=== PATIENT | female | born 1965 | race Caucasian/White ===

== ENCOUNTER 2016-12-25 19:03 | Emergency (ER) | payer SELFPAY ==
[2016-12-25 19:47] VITALS: BP 123/78
[2016-12-25] MEDS ORDERED: IPRATROPIUM/ALBUTEROL 3 ML VIAL NEB ONE (20:36)
[2016-12-25] MEDS ORDERED: ALBUTEROL SULFATE 2.5 MG/3 ML VIAL NEB ONE (22:07)
--- NOTE | 2016-12-25 22:34 | RAD ---
EXAM DESCRIPTION: Chest,2 Views CLINICAL HISTORY: 51 years Female cough/sob COMPARISON: None. FINDINGS: The cardiomediastinal silhouette appears unremarkable. Mild atelectasis or infiltrate left lung base. No pleural effusions. No pneumothorax. IMPRESSION: Mild atelectasis or infiltrate at the left lung base. Electronically signed by: Camilo Vazquez MD 12/25/2016 10:15 PM SHEEP SHEARER
--- NOTE | 2016-12-25 22:37 | ED.PDOC ---
History of Present Illness - General Chief Complaint: Respiratory Problem Stated Complaint: cough and conjestion Time Seen by Provider: 12/25/16 19:34 Source: patient, RN notes reviewed, Vital Signs reviewed Exam Limitations: no limitations - History of Present Illness Initial Comments: Patient is a 51 y/o female who has had a cough for the past week. The cough is worsening and she now has chest pain when she coughs. It is productive. She reports fever/chills. She is a smoker. Timing/Duration: 1 week Severity: moderate Improving Factors: nothing Worsening Factors: nothing Associated Symptoms: chest pain, cough, fever/chills, shortness of breath Allergies/Adverse Reactions: Allergies Aspirin Allergy (Verified 12/25/16 19:33) Home Medications: Ambulatory Orders Albuterol Inhaler [Ventolin Hfa Inhaler] 2 puff INH Q4H PRN #1 inh 12/25/16 Azithromycin [Zithromax Z-Mauricio] 1 ea PO DAILY #1 pack 12/25/16 Review of Systems - Review of Systems Constitutional: States: chills, fever EENTM: States: no symptoms reported Respiratory: States: cough, short of breath Cardiology: States: chest pain - with cough Gastrointestinal/Abdominal: States: nausea Genitourinary: States: no symptoms reported Musculoskeletal: States: muscle pain Skin: States: no symptoms reported Neurological: States: no symptoms reported Endocrine: States: no symptoms reported Hematologic/Lymphatic: States: no symptoms reported All other Systems: Reviewed and Negative Past Medical History (General) - Patient Medical History Hx Seizures: No Hx Stroke: No Hx Dementia: No Hx Asthma: No Hx of COPD: No Hx Cardiac Disorders: No Hx Congestive Heart Failure: No Hx Pacemaker: No Hx Hypertension: No Hx Thyroid Disease: No Hx Diabetes: No Hx Gastroesophageal Reflux: No Hx Renal Disease: No Hx Cancer: No Hx of HIV: No Hx Hepatitis C: No Hx MRSA: No Surgical History: Hysterectomy - Vaccination History Hx Tetanus, Diphtheria Vaccination: - unknown Hx Influenza Vaccination: No Hx Pneumococcal Vaccination: No - Social History Hx Tobacco Use: Yes Hx Chewing Tobacco Use: No Hx Alcohol Use: No Hx Substance Use: No Hx Substance Use Treatment: No Hx Depression: Yes Hx Physical Abuse: No Hx Emotional Abuse: No Hx Suspected Abuse: No - Female History Patient is a Female of Child Bearing Age (10 -59 yrs old): Yes Patient : No Family Medical History - Family History Mother Family History: No Known Living Status: Still Living Physical Exam - Physical Exam General Appearance: Alert, No apparent distress Eye Exam: bilateral normal Ears, Nose, Throat: normal ENT inspection Respiratory: decreased breath sounds, crackles, rhonchi, wheezing, expiration, inspiration Cardiovascular/Chest: regular rate, rhythm, no edema, no gallop, no murmur Gastrointestinal/Abdominal: normal bowel sounds, non tender, soft, no organomegaly Extremity: normal range of motion Neurologic: alert, normal mood/affect, oriented x 3 Skin Exam: normal color, warm/dry Progress - Progress Progress: 12/25/16 22:38 Patient didn't notice much improvement with the DuoNeb, but noticed significant improvement with the albuterol NEB. - Results/Orders Results/Orders: 12/25/16 19:35 Temperature 99.2 F Pulse Rate [ 97 H Left] Respiratory 20 Rate Blood Pressure 123/78 [Left Arm] O2 Sat by Pulse 92 L Oximetry 12/25/16 20:51 SVN/Updraft Therapy .PRN Laboratory Results WBC 12.3 K/mm3 (4.8-10.8) H 12/25/16 20:30 RBC 4.78 M/mm3 (4.20-5.40) 12/25/16 20:30 Hgb 14.9 gm/dL (12.0-16.0) 12/25/16 20:30 Hct 43.9 % (36.0-47.0) 12/25/16 20:30 MCV 91.8 fl (81.0-99.0) 12/25/16 20:30 MCH 31.2 pg (27.0-31.0) H 12/25/16 20:30 MCHC 34.0 g/dL (33.0-37.0) 12/25/16 20:30 RDW 13.3 % (11.5-14.5) 12/25/16 20:30 Plt Count 304 K/mm3 (130-400) 12/25/16 20:30 MPV 8.4 fl (7.40-10.4) 12/25/16 20:30 Absolute Neuts (auto) 7.00 K/uL (1.8-6.8) H 12/25/16 20:30 Absolute Lymphs (auto) 3.80 K/uL (1.0-3.4) H 12/25/16 20:30 Absolute Monos (auto) 1.10 K/uL (0.2-0.8) H 12/25/16 20:30 Absolute Eos (auto) 0.30 K/uL (0.0-0.4) 12/25/16 20:30 Absolute Basos (auto) 0.10 K/uL (0.0-0.1) 12/25/16 20:30 Neutrophils % 56.6 % (42.0-78.0) 12/25/16 20:30 Lymphocytes % 30.6 % (20.0-50.0) 12/25/16 20:30 Monocytes % 9.0 % (2.0-9.0) 12/25/16 20:30 Eosinophils % 2.7 % (1.0-5.0) 12/25/16 20:30 Basophils % 1.1 % (0.0-2.0) 12/25/16 20:30 Sodium 139 mmol/L (135-145) 12/25/16 20:30 Potassium 4.3 mmol/L (3.6-5.0) 12/25/16 20:30 Chloride 104 mmol/L (101-111) 12/25/16 20:30 Carbon Dioxide 30 mmol/L (21-31) 12/25/16 20:30 Anion Gap 9.3 (12-18) L 12/25/16 20:30 BUN 13 mg/dL (7-18) 12/25/16 20:30 Creatinine 0.84 mg/dL (0.6-1.3) 12/25/16 20:30 BUN/Creatinine Ratio 15.5 (10-20) 12/25/16 20:30 Random Glucose 99 mg/dL (70-105) 12/25/16 20:30 Serum Osmolality 277.7 mOsm/L (275-295) 12/25/16 20:30 Calcium 9.0 mg/dL (8.4-10.2) 12/25/16 20:30 Total Bilirubin 0.5 mg/dL (0.2-1.0) 12/25/16 20:30 AST 17 IU/L (10-42) 12/25/16 20:30 ALT 13 IU/L (10-60) 12/25/16 20:30 Alkaline Phosphatase 58 IU/L (42-121) 12/25/16 20:30 Serum Total Protein 8.0 gm/dL (6.4-8.2) 12/25/16 20:30 Albumin 4.0 g/dl (3.2-5.5) 12/25/16 20:30 Globulin 4.0 gm/dL (2.3-3.5) H 12/25/16 20:30 Albumin/Globulin Ratio 1.0 (1.1-1.9) L 12/25/16 20:30 - EKG/XRAY/CT XRAY: chest - LLL infiltrate Departure - Departure Clinical Impression: Pneumonia Qualifiers: Pneumonia type: due to unspecified organism Laterality: left Lung location: lower lobe of lung Qualifier Code: (J18.9) Pneumonia, unspecified organism Time of Disposition: 22:41 Disposition: Discharge to Home or Self Care Condition: Fair Departure Forms: ED Discharge - Pt. Copy, Patient Portal Self Enrollment Instructions: DI for Pneumonia -- Adult, Pneumonia-Adult Diet: resume usual diet Prescriptions: Albuterol Inhaler [Ventolin Hfa Inhaler] 2 puff INH Q4H PRN #1 inh PRN Reason: Shortness Of Breath Azithromycin [Zithromax Z-Mauricio] 1 ea PO DAILY #1 pack Home Medications: Ambulatory Orders Albuterol Inhaler [Ventolin Hfa Inhaler] 2 puff INH Q4H PRN #1 inh 12/25/16 Azithromycin [Zithromax Z-Mauricio] 1 ea PO DAILY #1 pack 12/25/16 Additional Instructions: Follow up if symptoms persist or worsen.
[2016-12-25] MEDS ORDERED: cefTRIAXone SODIUM 1 GM VIAL IM ONE (22:39)
[2016-12-25] MEDS ORDERED: LIDOCAINE 1% 10 ML VIAL INJ ONE (22:53)
[2016-12-25 23:17] VITALS: TEMP 99.1
[2016-12-25 23:20] VITALS: O2SAT 98
--- NOTE | 2016-12-30 14:09 | RAD ---
EXAM DESCRIPTION: Chest,2 Views CLINICAL HISTORY: 51 years Female cough/sob COMPARISON: None. FINDINGS: The cardiomediastinal silhouette appears unremarkable. Mild atelectasis or infiltrate left lung base. No pleural effusions. No pneumothorax. IMPRESSION: Mild atelectasis or infiltrate at the left lung base. Electronically signed by: Camilo Vazquez MD 12/25/2016 10:15 PM CONTROL CLERK HEAD
--- NOTE | 2017-01-23 23:47 | RAD ---
EXAM DESCRIPTION: Chest,2 Views CLINICAL HISTORY: 51 years Female cough/sob COMPARISON: None. FINDINGS: The cardiomediastinal silhouette appears unremarkable. Mild atelectasis or infiltrate left lung base. No pleural effusions. No pneumothorax. IMPRESSION: Mild atelectasis or infiltrate at the left lung base. Electronically signed by: Camilo Vazquez MD 12/25/2016 10:15 PM WHEEL TRUING MACHINE TENDER
--- NOTE | 2017-01-24 01:52 | RAD ---
EXAM DESCRIPTION: Chest,2 Views CLINICAL HISTORY: 51 years Female cough/sob COMPARISON: None. FINDINGS: The cardiomediastinal silhouette appears unremarkable. Mild atelectasis or infiltrate left lung base. No pleural effusions. No pneumothorax. IMPRESSION: Mild atelectasis or infiltrate at the left lung base. Electronically signed by: Camilo Vazquez MD 12/25/2016 10:15 PM SPECIAL DEPUTY SHERIFF
--- NOTE | 2017-01-24 07:15 | RAD ---
EXAM DESCRIPTION: Chest,2 Views CLINICAL HISTORY: 51 years Female cough/sob COMPARISON: None. FINDINGS: The cardiomediastinal silhouette appears unremarkable. Mild atelectasis or infiltrate left lung base. No pleural effusions. No pneumothorax. IMPRESSION: Mild atelectasis or infiltrate at the left lung base. Electronically signed by: Camilo Vazquez MD 12/25/2016 10:15 PM CHIEF EXECUTIVE
== END 2016-12-25 23:20 | disposition home or self-care (01) ==
LOC: ER 19:03
DX: J18.9 Pneumonia, unspecified organism (principal); F17.200 Nicotine dependence, unspecified, uncomplicated; Z88.6 Allergy status to analgesic agent
CPT/HCPCS: 36415; 71020; 80053; 85025; 94640; J0696; J7611; J7620

== ENCOUNTER 2017-01-15 16:54 | Emergency (ER) | payer SELFPAY ==
[2017-01-15] MEDS ORDERED: ONDANSETRON INJ 4 MG/2 ML VIAL IV ONE (16:56)
[2017-01-15] MEDS ORDERED: NITROGLYCERIN 0.4 MG 25 EA TAB SL ONE (16:56)
--- NOTE | 2017-01-15 17:09 | ED.PDOC ---
History of Present Illness - General Chief Complaint: Chest Pain/CA Time Seen by Provider: 01/15/17 17:04 Source: patient, RN notes reviewed, Vital Signs reviewed Exam Limitations: no limitations - History of Present Illness Initial Comments: Sri.Vi 51 y/o female with history of ibs and depression stated while sitting at home she had sudden onset of chest pains "feeling of somebody kicking on her chest" which goes around her back no diaphoresi, no nausea or vomiting but aggravated with taking deep breaths Timing/Duration: 1/2 hour Location: central Activities at Onset: rest Prior Chest Pain/Cardiac Workup: no prior chest pain Improving Factors: nothing Worsening Factors: nothing, other - deep breath Nitro Today/Relief: no nitro taken today Aspirin Treatment Today: no aspirin today Associated Symptoms: other - his tory of pneumonia 2 weeks ago with pleuritic chest pain Allergies/Adverse Reactions: Allergies Aspirin Allergy (Verified 01/15/17 17:18) Home Medications: Ambulatory Orders Doxycycline Hyclate 100 mg PO BID #14 tab 01/15/17 Review of Systems - Review of Systems Constitutional: States: no symptoms reported EENTM: States: no symptoms reported Respiratory: States: see HPI Cardiology: States: see HPI Gastrointestinal/Abdominal: States: no symptoms reported Genitourinary: States: no symptoms reported, other - history of ibs Musculoskeletal: States: no symptoms reported Skin: States: no symptoms reported Neurological: States: no symptoms reported Endocrine: States: no symptoms reported Hematologic/Lymphatic: States: no symptoms reported Past Medical History (General) - Patient Medical History Hx Seizures: No Hx Stroke: No Hx Dementia: No Hx Asthma: No Hx of COPD: No Hx Cardiac Disorders: No Hx Congestive Heart Failure: No Hx Pacemaker: No Hx Hypertension: No Hx Thyroid Disease: No Hx Diabetes: No Hx Gastroesophageal Reflux: No Hx Renal Disease: No Hx Cancer: No Hx of HIV: No Hx Hepatitis C: No Hx MRSA: No Hx Other PMH: Yes - ibs ,depression Surgical History: other - hysterectomy - Vaccination History Hx Tetanus, Diphtheria Vaccination: - unknown Hx Influenza Vaccination: No Hx Pneumococcal Vaccination: No - Social History Hx Tobacco Use: Yes Hx Chewing Tobacco Use: No Hx Alcohol Use: No Hx Substance Use: No Hx Substance Use Treatment: No Hx Depression: Yes Hx Physical Abuse: No Hx Emotional Abuse: No Hx Suspected Abuse: No - Activities of Daily Living Patient Lives Alone: No - family - Female History Patient : No Family Medical History - Family History Mother Family History: No Known Living Status: Still Living Hx Cardiac Disease: Yes - mom-chf ,cad Physical Exam - Physical Exam General Appearance: Alert, Anxious, No apparent distress Eyes, Ears, Nose, Throat Exam: PERRL/EOMI, normal ENT inspection, TMs normal, pharynx normal Neck: non-tender, full range of motion, supple, normal inspection Respiratory: chest non-tender, lungs clear, normal breath sounds, no respiratory distress, no accessory muscle use Cardiovascular/Chest: normal peripheral pulses, regular rate, rhythm, no edema, no gallop, no JVD, no murmur Peripheral Pulses: radial,right: 2+, radial,left: 2+ Gastrointestinal/Abdominal: normal bowel sounds, non tender, soft, no organomegaly, no pulsatile mass Rectal Exam: normal exam Extremity: normal range of motion, non-tender, normal inspection Neurologic: no motor/sensory deficits, alert, normal mood/affect, oriented x 3 Skin Exam: normal color, warm/dry Lymphatic: no adenopathy Progress - Results/Orders Results/Orders: 01/15/17 16:56 Telemetry .ONCE EKG Stat Pulse Ox Stat 01/15/17 16:57 Pulse Oximetry Assessment DAILY 01/15/17 20:23 EKG Assessment ONCE 01/15/17 20:30 EKG STAT Laboratory Results WBC 11.1 K/mm3 (4.8-10.8) H 01/15/17 17:12 RBC 4.90 M/mm3 (4.20-5.40) 01/15/17 17:12 Hgb 14.9 gm/dL (12.0-16.0) 01/15/17 17:12 Hct 44.7 % (36.0-47.0) 01/15/17 17:12 MCV 91.3 fl (81.0-99.0) 01/15/17 17:12 MCH 30.4 pg (27.0-31.0) 01/15/17 17:12 MCHC 33.3 g/dL (33.0-37.0) 01/15/17 17:12 RDW 13.1 % (11.5-14.5) 01/15/17 17:12 Plt Count 299 K/mm3 (130-400) 01/15/17 17:12 MPV 8.6 fl (7.40-10.4) 01/15/17 17:12 Absolute Neuts (auto) 6.40 K/uL (1.8-6.8) 01/15/17 17:12 Absolute Lymphs (auto) 3.50 K/uL (1.0-3.4) H 01/15/17 17:12 Absolute Monos (auto) 0.90 K/uL (0.2-0.8) H 01/15/17 17:12 Absolute Eos (auto) 0.30 K/uL (0.0-0.4) 01/15/17 17:12 Absolute Basos (auto) 0.10 K/uL (0.0-0.1) 01/15/17 17:12 Neutrophils % 57.8 % (42.0-78.0) 01/15/17 17:12 Lymphocytes % 31.0 % (20.0-50.0) 01/15/17 17:12 Monocytes % 7.9 % (2.0-9.0) 01/15/17 17:12 Eosinophils % 2.3 % (1.0-5.0) 01/15/17 17:12 Basophils % 1.0 % (0.0-2.0) 01/15/17 17:12 PT 11.1 SECONDS (9.4-12.5) 01/15/17 17:12 INR 0.980 01/15/17 17:12 PTT (SP) 31.8 SECONDS (25.1-36.5) 01/15/17 17:12 D-Dimer, Quantitative < 230 ng/mL (0-230) 01/15/17 17:00 Sodium 137 mmol/L (135-145) 01/15/17 17:12 Potassium 3.6 mmol/L (3.6-5.0) 01/15/17 17:12 Chloride 103 mmol/L (101-111) 01/15/17 17:12 Carbon Dioxide 27 mmol/L (21-31) 01/15/17 17:12 Anion Gap 10.6 (12-18) L 01/15/17 17:12 BUN 12 mg/dL (7-18) 01/15/17 17:12 Creatinine 0.94 mg/dL (0.6-1.3) 01/15/17 17:12 BUN/Creatinine Ratio 12.8 (10-20) 01/15/17 17:12 Random Glucose 97 mg/dL (70-105) 01/15/17 17:12 Serum Osmolality 273.5 mOsm/L (275-295) L 01/15/17 17:12 Calcium 8.9 mg/dL (8.4-10.2) 01/15/17 17:12 Magnesium 1.9 mg/dL (1.8-2.5) 01/15/17 17:12 Creatine Kinase 85 IU/L (26-140) 01/15/17 17:12 CK-MB (CK-2) 0.6 ng/mL (0.0-4.4) 01/15/17 17:12 CK-MB (CK-2) % Not Reportable 01/15/17 17:12 Troponin I < 0.02 ng/mL (0.01-0.05) 01/15/17 17:12 B-Natriuretic Peptide 19.1 pg/ml (0-100) 01/15/17 17:12 - EKG/XRAY/CT EKG: Sinus, no ST T wave changes XRAY: chest - no acute abnormality - Additional EKG/XRAY/Consults EKG #2: Sinus, no ST T wave changes Comments: normal ekg Departure - Departure Clinical Impression: Pleuritic chest pain Time of Disposition: 21:43 Disposition: Discharge to Home or Self Care Condition: Good Departure Forms: ED Discharge - Pt. Copy, Patient Portal Self Enrollment Instructions: DI for Atypical Chest Pain Prescriptions: Doxycycline Hyclate 100 mg PO BID #14 tab Home Medications: Ambulatory Orders Doxycycline Hyclate 100 mg PO BID #14 tab 01/15/17 Additional Instructions: RETURN TO EMERGENCY ROOM NEEDED
[2017-01-15 17:18] VITALS: TEMP 99.1
[2017-01-15] MEDS ORDERED: IPRATROPIUM/ALBUTEROL 3 ML VIAL NEB ONE (17:56)
[2017-01-15 18:48] VITALS: O2SAT 94
--- NOTE | 2017-01-15 20:28 | RAD ---
EXAM: Chest,1 View CLINICAL INDICATION: 51-year-old female with shortness of breath, cough, LEFT anterior chest wall pain and pleuritic chest wall pain. TECHNIQUE: Single view, AP portable chest was obtained. COMPARISON: None. FINDINGS: Unremarkable cardiac and mediastinal silhouette. Heart size is normal. Low lung volumes grossly clear without focal opacity, pneumothorax or pleural effusions. The visualized bones are within normal limits. IMPRESSION: No acute cardiopulmonary abnormalities. Electronically signed by: Merlene Palacios MD 01/15/2017 5:30 PM PROTECTIVE SIGNAL SUPERINTENDENT
[2017-01-15] MEDS ORDERED: KETOROLAC TROMETHAMINE INJ 60 MG/2 ML VIAL IM ONE (20:46)
[2017-01-15 21:14] VITALS: BP 109/46
[2017-01-15] MEDS ORDERED: HYDROCOD/APAP 7.5/325 (ER DISP) #3 TAB PO ONE (21:42)
[2017-01-15] MEDS ORDERED: DOXYCYCLINE TAB (ER DISPENSE) 100 MG CAP PO ONE (21:42)
--- NOTE | 2017-01-19 13:45 | RAD ---
EXAM: Chest,1 View CLINICAL INDICATION: 51-year-old female with shortness of breath, cough, LEFT anterior chest wall pain and pleuritic chest wall pain. TECHNIQUE: Single view, AP portable chest was obtained. COMPARISON: None. FINDINGS: Unremarkable cardiac and mediastinal silhouette. Heart size is normal. Low lung volumes grossly clear without focal opacity, pneumothorax or pleural effusions. The visualized bones are within normal limits. IMPRESSION: No acute cardiopulmonary abnormalities. Electronically signed by: Merlene Palacios MD 01/15/2017 5:30 PM FIRE APPARATUS ENGINEER
--- NOTE | 2017-01-24 00:19 | RAD ---
EXAM: Chest,1 View CLINICAL INDICATION: 51-year-old female with shortness of breath, cough, LEFT anterior chest wall pain and pleuritic chest wall pain. TECHNIQUE: Single view, AP portable chest was obtained. COMPARISON: None. FINDINGS: Unremarkable cardiac and mediastinal silhouette. Heart size is normal. Low lung volumes grossly clear without focal opacity, pneumothorax or pleural effusions. The visualized bones are within normal limits. IMPRESSION: No acute cardiopulmonary abnormalities. Electronically signed by: Merlene Palacios MD 01/15/2017 5:30 PM BULK STATION AGENT
== END 2017-01-15 22:05 | disposition home or self-care (01) ==
LOC: ER 16:54
DX: R07.81 Pleurodynia (principal); F32.9 Major depressive disorder, single episode, unspecified; K58.9 Irritable bowel syndrome, unspecified; Z88.6 Allergy status to analgesic agent
CPT/HCPCS: 36415; 71010; 80048; 82550; 82553; 83880; 84484; 85025; 85379; 85610; 85730; 93005; J1885; J2405

== ENCOUNTER → 2017-09-09 | Outpatient (CLI) | payer SELFPAY ==
--- NOTE | 2017-09-09 16:29 | US ---
EXAM DESCRIPTION: Venous,Lower Extremity LT CLINICAL HISTORY: M79.89 COMPARISON: None Available. TECHNIQUE: Two -dimensional and doppler sonographic evaluation of the deep venous system of the left lower extremity. FINDINGS: Doppler evaluation shows normal color flow and normal phasicity and augmentation of the left common femoral vein, femoral vein, popliteal vein, greater saphenous vein, and posterior tibial vein. The left lower extremity deep veins showed normal occlusion with transducer pressure. Two-dimensional survey showed no echogenic thrombus within these veins. Echogenic subcutaneous homogeneous soft tissue mass measuring 2.0 x 1.6 cm, nonvascular, posterior to the knee. IMPRESSION: 1. Duplex ultrasound evaluation of the left lower extremity deep venous system showing no evidence of thrombosis or embolism. 2. Possible subcutaneous lipoma or scar posterior to the knee.. Electronically signed by: Shar Ray MD 09/09/2017 4:28 PM CDT
== END | disposition home or self-care (01) ==
LOC: US 09:55
PROVIDERS: ATTEND Obstetrics & Gynecology
DX: M79.605 Pain in left leg (principal)

== ENCOUNTER 2017-10-14 21:42 | Emergency (ER) | payer SELFPAY ==
[2017-10-14] MEDS ORDERED: EPINEPHrine HCL AMP 1 MG/ML AMP SUBCU ONE (22:13)
[2017-10-14] MEDS ORDERED: methylPREDNISolone SODIUM SUC 125 MG/2 ML VIAL IV ONE (22:13)
[2017-10-14] MEDS ORDERED: diphenhydrAMINE HCL 50 MG/ML VIAL IV ONE (22:14)
--- NOTE | 2017-10-14 22:21 | ED.PDOC ---
History of Present Illness - General Chief Complaint: Allergic Reaction Stated Complaint: Allergic rash Time Seen by Provider: 10/14/17 21:51 Source: patient, RN notes reviewed, Vital Signs reviewed, family Exam Limitations: no limitations - History of Present Illness Initial Comments: Patient presents with a generalized itchy rash. Initially had hives, lip swelling and indigestion. Took Benadryl 50mg PO ~ 1 hour ago and symptoms are improving. Denies throat swelling or SOB. No history of allergic reactions. Timing/Duration: this evening Severity: severe Location: generalized Improving Factors: medication - Benadryl Worsening Factors: nothing Associated Symptoms: flushing, hives, itching, rash Allergies/Adverse Reactions: Allergies Aspirin Allergy (Verified 10/14/17 22:31) Home Medications: Ambulatory Orders Doxycycline Hyclate 100 mg PO BID #14 tab 01/15/17 Review of Systems - Review of Systems Constitutional: States: no symptoms reported EENTM: States: mouth swelling - lip swelling, other - Red eyes. Denies: throat swelling Respiratory: Denies: cough, short of breath Cardiology: States: no symptoms reported Gastrointestinal/Abdominal: States: see HPI, other - Indigestion. Denies: abdominal pain, nausea, vomiting Musculoskeletal: States: no symptoms reported Skin: States: see HPI, rash Neurological: States: no symptoms reported All other Systems: No Change from Baseline Past Medical History (General) - Patient Medical History Hx Seizures: No Hx Stroke: No Hx Dementia: No Hx Asthma: No Hx of COPD: No Hx Cardiac Disorders: No Hx Congestive Heart Failure: No Hx Pacemaker: No Hx Hypertension: No Hx Thyroid Disease: No Hx Diabetes: No Hx Gastroesophageal Reflux: No Hx Renal Disease: No Hx Cancer: No Hx of HIV: No Hx Hepatitis C: No Hx MRSA: No - Vaccination History Hx Tetanus, Diphtheria Vaccination: - unknown Hx Influenza Vaccination: No Hx Pneumococcal Vaccination: No - Social History Hx Tobacco Use: Yes Hx Chewing Tobacco Use: No Hx Alcohol Use: No Hx Substance Use: No Hx Substance Use Treatment: No Hx Depression: Yes Hx Physical Abuse: No Hx Emotional Abuse: No Hx Suspected Abuse: No - Female History Patient : No Family Medical History - Family History Mother Family History: No Known Living Status: Still Living Hx Family Congestive Heart Failure: Yes Hx Cardiac Disease: Yes - mom-chf ,cad Physical Exam - Physical Exam General Appearance: Agitated, Alert, No apparent distress, Well Developed, Well Groomed, Well Hydrated, Well Nourished Eyes, Ears, Nose, Throat Exam: pharyngeal erythema Neck: supple, normal inspection Cardiovascular/Chest: regular rate, rhythm, no edema, no gallop, no JVD, no murmur Respiratory: lungs clear, normal breath sounds, no respiratory distress, no accessory muscle use Extremity: normal range of motion, non-tender Neurologic: alert, normal mood/affect, oriented x 3 Skin Problem Location: generalized Skin Character: erythema, papules, rash, urticarial Progress - Progress Progress: 10/14/17 23:11 Patient reports she is feeling much better after Benadryl 25mg IV, Epinephrine 0.3mg SQ and Solu-medrol 125mg IV. Rash is fading. Patient now reports she is allergic to beer and that the fried pickles she ate at dinner may have been beer battered. She is also allergic to wheat and ate a ham sandwich. 10/14/17 23:22 Patient is feeling well and would like to go home. Departure - Departure Clinical Impression: Allergic reaction to food Qualifiers: Encounter type: initial encounter Qualified Code(s): T78.1XXA - Other adverse food reactions, not elsewhere classified, initial encounter Time of Disposition: 23:22 Disposition: Discharge to Home or Self Care Condition: Good Departure Forms: ED Discharge - Pt. Copy, Patient Portal Self Enrollment Instructions: DI for General Allergic Reactions Diet: resume usual diet Activity: increase activity as tolerated Referrals: Flo Santos MD [Primary Care Provider] - 1-2 Weeks Home Medications: Ambulatory Orders Doxycycline Hyclate 100 mg PO BID #14 tab 01/15/17
[2017-10-14 22:33] VITALS: O2SAT 98
[2017-10-14 23:42] VITALS: BP 137/81; TEMP 98.2
== END 2017-10-14 23:41 | disposition home or self-care (01) ==
LOC: ER 21:42
DX: T78.1XXA Other adverse food reactions, not elsewhere classified, initial encounter (principal); Z87.891 Personal history of nicotine dependence
CPT/HCPCS: J1200; J2930

== ENCOUNTER → 2017-10-25 | Outpatient (CLI) | payer OTHER ==
--- NOTE | 2017-10-26 13:08 | MAM ---
EXAM DESCRIPTION: 3D Screening BILATERAL : Digital Mammography. CLINICAL HISTORY: 52 years Female SCREENING . Remote family history of breast cancer. No complaints. Postmenopausal. Currently on HRT. COMPARISON: Baseline study at this facility.. No prior reports available. TECHNIQUE: Bilateral CC and MLO projection full-field images, 3-D tomosynthesis digital mammographic technique. Also bilateral synthesized CC/ MLO full-field images. CAD not utilized. FINDINGS: The breast parenchymal density pattern is: Heterogeneously dense breast tissue, which may obscure small masses. No skin thickening or nipple retraction . Bilateral solitary microcalcifications. Focal asymmetry in the anterior third of the right breast at the 100 clock position approximately 4 cm from the nipple. No associated microcalcifications. Increased density compared to the surrounding fibroglandular tissues. Focal asymmetry in the anterior third of the left breast at the 1100 clock position approximately 4 cm from the nipple. Increased density compared to the surrounding fibroglandular tissues. No associated microcalcifications. IMPRESSION: BI-RADS CATEGORY: 0 - INCOMPLETE- Need additional imaging evaluation. FOLLOW-UP: Recall for additional imaging: Bilateral digital 2-D full-field CC images. Bilateral digital 3-D tomosynthesis full field LM images. Followed by bilateral targeted breast ultrasound.. Written communication concerning the IMPRESSION and Follow-up, will be mailed to the patient and referring health care provider. Electronically signed by: Shar Ray MD 10/26/2017 1:07 PM PIPE SMOKING MACHINE OFFBEARER
== END | disposition home or self-care (01) ==
LOC: MAMMO 13:39
PROVIDERS: ATTEND Family Medicine
DX: Z12.31 Encounter for screening mammogram for malignant neoplasm of breast (principal)
CPT/HCPCS: 77063; G0202

== ENCOUNTER → 2017-11-15 | Outpatient (CLI) | payer OTHER ==
--- NOTE | 2017-11-15 11:26 | MAM ---
EXAM DESCRIPTION: 3D Diagnostic, Bilateral: Digital Mammography CLINICAL HISTORY: 52 yearsFemaleABNORMAL MAMMO bilateral retroareolar regions of focal asymmetry. On recent screening study. COMPARISON: 3-D, tomosynthesis bilateral screening mammography 10/25/2017. Bilateral targeted breast ultrasound following this examination. Report from prior examination also reviewed. TECHNIQUE: Bilateral LM projection full-field images, 3-D tomosynthesis digital mammographic technique. Also bilateral synthesized LM full-field images. CAD not utilized. Bilateral 2-D CC full-field images. CAD utilized. FINDINGS: The breast parenchymal density pattern is: Heterogeneously dense breast tissue, which may obscure small masses. No skin thickening or nipple retraction focal asymmetry 1230 clock position, 2 cm from the nipple. No microcalcifications or definite mass. Focal asymmetry 1130 clock position left breast, 3-4 cm from the nipple. No microcalcifications or definite mass. Ultrasound: Scanning at the 1200 - 100 clock position of the right breast 3 cm from the nipple. Elongated hypoechoic mixed echogenicity lesion with microlobulated spiculated borders. Oval-shaped and parallel orientation. Posterior shadowing features. No definite calcifications, not vascular. Dimensions 1.7 x 1.4 x 0.6 cm. Oval-shaped anechoic cyst at the 100 clock position, 3 cm from the nipple with well-defined circumscribed margins, parallel orientation, and posterior enhancement features. 5.9 x 4.4 mm. Not vascular. Consistent with a cyst. Adjacent to a hypoechoic nodule with lobulated margins and central echogenicity mixed posterior features and nonvascular. Consistent with a lymph node. Surrounding tissue is heterogeneous fatty and fibroglandular texture. Scanning of the left breast shows multiple foci of small cysts, 3 cm from the nipple at the 1100 - 1200 clock position. Largest measures 3.7 mm. Heterogeneous fatty and fibroglandular tissues are visualized. IMPRESSION: BI-RADS CATEGORY 4: SUSPICIOUS. SUB-CATEGORY 4A - LOW SUSPICION FOR MALIGNANCY. Surgical consultation and tissue diagnosis should be considered. The FINDINGS and follow-up plan were reviewed in person with the patient following the examination. Written communication explaining the IMPRESSION and follow-up will be mailed to the patient and referring care provider. Electronically signed by: Shar Ray MD 11/15/2017 11:25 AM [facility]
--- NOTE | 2017-11-15 11:31 | US ---
EXAM DESCRIPTION: Breast,Bilateral: Ultrasound CLINICAL HISTORY: 52 yearsFemaleABNORMAL MAMMO. Bilateral regions of retroareolar focal asymmetry. COMPARISON: Digital 3-D/2-D bilateral diagnostic mammography on this visit. 3-D tomosynthesis bilateral screening mammography 10/25/2017. TECHNIQUE: Transcutaneous scanning of the bilateral breast utilizing two-dimensional and Doppler modes. Scanning performed by the bus aide and Dr. Ray. FINDINGS: Scanning at the 1200 - 100 clock position of the right breast 3 cm from the nipple. Elongated hypoechoic mixed echogenicity lesion with microlobulated spiculated borders. Oval-shaped and parallel orientation. Posterior shadowing features. No definite calcifications, not vascular. Dimensions 1.7 x 1.4 x 0.6 cm. Oval-shaped anechoic cyst at the 100 clock position, 3 cm from the nipple with well-defined circumscribed margins, parallel orientation, and posterior enhancement features. 5.9 x 4.4 mm. Not vascular. Adjacent to a hypoechoic nodule with lobulated margins and central echogenicity mixed posterior features and nonvascular. Consistent with a lymph node. Surrounding tissue is heterogeneous fatty and fibroglandular texture. Scanning of the left breast shows multiple foci of small cysts, 3 cm from the nipple at the 1100 - 1200 clock position. Largest measures 3.7 mm. Heterogeneous fatty and fibroglandular tissues are visualized. IMPRESSION: 1. BI-RADS CATEGORY: 4 - SUSPICIOUS. SUB - CATEGORY 4A: LOW SUSPICION FOR MALIGNANCY. 2. Please refer to bilateral 3-D/2-D diagnostic digital mammography and report on this visit. The FINDINGS and the follow-up plan were reviewed in person with the patient after the examination. Written communication explaining the IMPRESSION and follow-up will be mailed to the patient and referring care provider. Electronically signed by: Shar Ray MD 11/15/2017 11:28 AM POLICE CLERK
== END | disposition home or self-care (01) ==
LOC: MAMMO 09:49
PROVIDERS: ATTEND Family Medicine
DX: R92.8 Other abnormal and inconclusive findings on diagnostic imaging of breast (principal)
CPT/HCPCS: 76641; G0204; G0279

== ENCOUNTER → 2018-01-05 | Outpatient (CLI) | payer OTHER ==
--- NOTE | 2018-01-05 09:52 | OP ---
DATE OF PROCEDURE: 01/05/18 PREOPERATIVE DIAGNOSIS: 1. Abnormal mammogram with mass in the right breast. POSTOPERATIVE DIAGNOSIS: 1. Abnormal mammogram with mass in the right breast. PROCEDURE: 1. Sonographically guided needle core biopsy, right breast mass. SURGEON: Eriberto Perez MD. COOK FISH EGGS: None. ANESTHESIA: Local infiltration of 1% lidocaine. INDICATION: The patient is a 52-year-old female who on routine mammography was found to have an abnormality in the upper portion of the right breast. Comprehensive mammogram revealed a solid, irregular mass. She was brought to the Ultrasound Suite today for sonographically guided biopsy. FINDINGS: Five good cores were taken and the needle was identified within the mass by ultrasound. PROCEDURE: After the patient was placed in the supine position, the ultrasound was used to identify the mass. The breast medial to the ultrasound probe was prepped with Betadine and draped. Local infiltration of anesthesia was obtained with 1% lidocaine. A stab wound was made with a #15 blade and then the 25-gauge needle was introduced and local infiltration of anesthesia was obtained between the stab wound and the mass. After this was done, a 22-gauge needle was introduced and aspirated with no fluid obtained. At this point, the needle biopsy device was introduced under sonographic direction and 5 cores were taken. The patient tolerated the procedure well. Estimated blood loss was less than 5 mL. Hemostasis was obtained with pressure and then a single suture of 4-0 Nylon was used to close the stab wound. Sterile pressure dressing was applied. The patient tolerated the procedure well and was discharged home. #[id number] [facility]
--- NOTE | 2018-01-05 21:47 | US ---
EXAM DESCRIPTION: Biopsy/Needle Guidance CLINICAL HISTORY: 52 years Female RIGHT BREAST MASS COMPARISON: Diagnostic ultrasound of the bilateral breast on 11/15/2017 TECHNIQUE: The procedure was performed by Dr. Perez. Repeat ultrasound localized the lesion at the 1200 clock position of the right breast. Sterile preparation. Sterile ultrasound guidance. FINDINGS: Complex lesion with posterior acoustic attenuation is well demonstrated prior to the procedure. Multiple following images demonstrate the needle within the tissue of interest. IMPRESSION: Successful, ultrasound-guided, needle core biopsy of right breast mass. Adequate core samples were obtained. Pathology examination at remote facility, results pending. 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
== END ==
LOC: US 08:30
PROVIDERS: ATTEND Surgery
DX: R92.8 Other abnormal and inconclusive findings on diagnostic imaging of breast (principal)

== ENCOUNTER → 2018-01-27 | Outpatient (CLI) | payer OTHER ==
--- NOTE | 2018-01-27 13:23 | RAD ---
RIGHT SHOULDER HISTORY:M25.511 COMPARISON: None FINDINGS: Two views of shoulder demonstrate anatomic bony alignment. No fracture nor dislocation is identified. Acromiohumeral interval is maintained. Glenohumeral and acromioclavicular articulations are unremarkable in appearance. No soft tissue abnormality around the shoulder joint. No pneumothorax in visualized portion of left upper lung. 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
--- NOTE | 2018-01-27 17:21 | US ---
Exam: Bilateral lower extremity arterial Doppler sonogram CLINICAL HISTORY: Symptoms TECHNIQUE: Doppler sonographic evaluation of the bilateral lower extremities was performed. FINDINGS: Right Submitted sonographic images reveal widely patent vessels with no significant stenosis. Normal triphasic flow throughout the right lower extremity vessels. The following peak systolic flow flow velocity measurements were obtained: Common femoral artery velocity equals 149.7 centimeters per second (triphasic). Profunda femoral arterial flow was visualized on color Doppler images but the velocity was not measured. Superficial femoral artery velocity measurements range from 74-102 centimeters per second (triphasic). Popliteal artery velocity equals 48 centimeters per second (triphasic). Peroneal artery velocity equals 42 centimeters per second (biphasic). Posterior tibial artery velocity equals 80 centimeters per second (triphasic). Dorsalis pedis artery velocity equals 19 centimeters per second (biphasic). Left Submitted sonographic images reveal normal widely patent left lower extremity arteries with multiphasic flow and no significant stenosis. The following peak systolic flow flow velocity measurements were obtained: Common femoral artery velocity equals 135 centimeters per second (triphasic). Profunda femoral arterial flow was visualized on color Doppler imaging with a velocity was not measured. Superficial femoral artery velocity measurements range from 55-100 centimeters per second (triphasic). Popliteal artery velocity equals 51 centimeters per second (triphasic). Peroneal artery velocity equals 54 centimeters per second (biphasic). Posterior tibial artery velocity equals 63 centimeters per second (triphasic). Dorsalis pedis artery velocity equals 16 centimeters per second (triphasic). IMPRESSION: Other than somewhat slow flow in the dorsalis pedis arteries bilaterally, there is normal multiphasic flow in the bilateral lower extremity arteries. No visualized arterial stenosis. Electronically signed by: Dustin Sanchez MD 01/27/2018 5:20 PM [facility]
== END ==
LOC: US 09:05
PROVIDERS: ATTEND Orthopaedic Surgery
DX: I73.9 Peripheral vascular disease, unspecified (principal); G25.81 Restless legs syndrome; M25.511 Pain in right shoulder

== ENCOUNTER → 2018-01-27 | Outpatient (CLI) | payer OTHER | LOC: RAD 09:05 | PROVIDERS: ATTEND Obstetrics & Gynecology | DX: M25.511 Pain in right shoulder (principal) ==

== ENCOUNTER → 2018-08-14 | Outpatient (CLI) | payer OTHER ==
--- NOTE | 2018-08-14 21:07 | US ---
EXAM DESCRIPTION: Breast,Right: Ultrasound CLINICAL HISTORY: 53 yearsFemale6 MONTH FOLLOW UP FOR NEG BX. Right breast. COMPARISON: Digital diagnostic mammogram right breast on this visit. TECHNIQUE: Transcutaneous scanning of the right breast utilizing urrutia-scale and Doppler modes. Scanning performed by the book jogger with observation by Dr. Ray. FINDINGS: Scanning at the 1200 clock position of the right breast 3 cm from the nipple. Again noted is a heterogeneous partially isoechoic and partially hypoechoic mass with lobulated borders measuring 1.1 x 0.9 cm. Parallel orientation with mostly posterior shadowing features. Nonvascular. This mass was benign on ultrasound guided needle core biopsy December 2017 and is stable in size and appearance compared to the prior study. Scanning at the 1200 clock position is a circumscribed oval hypoechoic to anechoic mass with thin hinton, measuring 5.0 x 5.6 mm. Nonvascular. Posterior enhancement features. No new distinct solid masses or cysts. No large calcifications or parenchymal edema. No overlying skin changes or abnormal vascularity. IMPRESSION: 1. Stable appearance of biopsy-proven benign lobular hypoechoic mass at the 1200 clock position of the right breast 3 cm from the nipple. Stable hypoechoic mass in the adjacent soft tissues. ASSESSMENT: 1. Bi-Rads Category 2: Benign. 2. Please refer to digital diagnostic right breast mammographic examination and report on this visit. The FINDINGS and the FOLLOW-UP plan were reviewed in person with the patient after the examination. Written communication explaining the IMPRESSION and FOLLOW-UP will be mailed to the patient and referring care provider. Electronically signed by: Shar Ray MD 08/14/2018 9:05 PM CDT
--- NOTE | 2018-08-16 13:48 | MAM ---
EXAM DESCRIPTION: 3D Diagnostic, Right: Digital Mammography CLINICAL HISTORY: 53 yearsFemale6 month follow up for neg bx superior anterior right breast.. COMPARISON: Targeted right breast ultrasound following this examination. Ultrasound-guided right breast biopsy 01/05/2018. Bilateral diagnostic digital breast tomosynthesis 11/15/2017. TECHNIQUE: Right breast CC LM MLO projection full-field images, digital mammographic tomosynthesis technique. 2-D digital full field MLO image right breast. CAD not utilized. Lifetime risk of developing breast cancer (Tyrer-Cuzick model) is 8 %. FINDINGS: The breast parenchymal density pattern is: Scattered areas of fibroglandular density. No skin thickening or nipple retraction lobulated mass approximately 3 cm from the nipple in the anterior third of the right breast at the 1230 clock position. No associated microcalcifications. Right axillary lymph node. Scattered solitary microcalcifications in the right breast. Ultrasound: Scanning at the 1200 clock position of the right breast 3 cm from the nipple. Again noted is a heterogeneous partially isoechoic and partially hypoechoic mass with lobulated borders measuring 1.1 x 0.9 cm. Parallel orientation with mostly posterior shadowing features. Nonvascular. This mass was benign on ultrasound guided needle core biopsy December 2017 and is stable in size and appearance compared to the prior study. Scanning at the 1200 clock position is a circumscribed oval hypoechoic to anechoic mass with thin hinotn, measuring 5.0 x 5.6 mm. Nonvascular. Posterior enhancement features. No new distinct solid masses or cysts. No large calcifications or parenchymal edema. No overlying skin changes or abnormal vascularity. IMPRESSION: Benign exam. BIRAD CATEGORY: 2 BENIGN FINDINGS. RECOMMENDATIONS: FOLLOW UP: Routine digital bilateral screening, September 2018. Previous screening images left breast in September 2017. Written communication explaining the IMPRESSION and follow-up, will be mailed to the patient and referring health care provider. According to the [employer], yearly mammograms are recommended starting at age 40 and continuing as long as a woman is in good health. Any breast change noted on a breast self-exam should be reported promptly to the patient's healthcare provider. Breast MRI is recommended for women with an approximately 20-25% or greater lifetime risk of breast cancer, including women with a strong family history of breast or ovarian cancer and women who have been treated for Hodgkin's disease. A negative mammographic report should not delay tissue diagnosis in patients with significant clinical history or physical findings. Extremely dense breast tissue limits the sensitivity of digital mammography. Electronically signed by: Shar Ray MD 08/16/2018 1:47 PM CDT
== END ==
LOC: MAMMO 08:05
PROVIDERS: ATTEND Family Medicine
DX: N63.0 Unspecified lump in unspecified breast (principal)
CPT/HCPCS: 76641; 77065; G0279

== ENCOUNTER → 2018-12-04 | Outpatient (CLI) | payer OTHER | LOC: LAB.O 09:13 | PROVIDERS: ATTEND Emergency Medicine | DX: R60.9 Edema, unspecified (principal) ==

== ENCOUNTER → 2019-03-21 | Outpatient (CLI) | payer OTHER ==
--- NOTE | 2019-03-21 16:59 | CT ---
Procedure: CT ABDOMEN PELVIS WITHOUT THEN WITH IV CONTRAST Exam Date: 03/21/2019 Ordering Provider: Salma Hernandez Clinical Indication: INTRA-ABDOMINAL AND PELVIC SWELLING MASS AND LUMP Comparison: None TECHNIQUE: 5 mm images were taken through the abdomen and pelvis before and after the administration of nonionic intravenous contrast material. Oral contrast was not administered. Coronal and sagittal reformatted images were generated. This exam was performed according to our departmental dose optimization program which includes use of automated exposure control, adjustment of the mA and/or kV according to patient size and/or use of iterative reconstruction technique. FINDINGS: Lower chest: Nonacute Abdomen: Liver and biliary system: No liver lesions. No biliary ductal dilatation. No calcified gallstones. Spleen: Unremarkable Pancreas: Unremarkable Adrenal glands: Unremarkable Kidneys, ureters, bladder: No hydronephrosis in either kidney. Ureters and bladder are unremarkable. Lymph nodes: No lymphadenopathy Retroperitoneum, abdominal wall, peritoneal cavity: No ascites. No free air. Vessels: No abdominal aortic aneurysm. Calcified atherosclerotic plaque in the aorta with approximately 50% stenosis of the aorta at the level of the renal arteries. Bowel: No bowel obstruction. No findings to suggest acute appendicitis. Large stool burden in the right colon. Pelvic organs: Prior hysterectomy. Unremarkable adnexal regions. Bones: No destructive bony lesions. IMPRESSION: 1. Calcified atherosclerotic plaque in the aorta with approximately 50% stenosis of the aorta at the level of the renal arteries. 2. Large stool burden in the right colon without bowel obstruction. Electronically signed by: Mesfin Gutiérrez MD 03/21/2019 4:55 PM CDT
== END ==
LOC: CT 08:35
PROVIDERS: ATTEND Nurse Practitioner Family
DX: I70.0 Atherosclerosis of aorta (principal); I70.1 Atherosclerosis of renal artery; K59.00 Constipation, unspecified; I10 Essential (primary) hypertension

== ENCOUNTER → 2020-06-05 | Outpatient (CLI) | payer OTHER | LOC: LAB.O 09:54 | PROVIDERS: ATTEND Family Medicine | DX: I10 Essential (primary) hypertension (principal); E78.5 Hyperlipidemia, unspecified; E03.9 Hypothyroidism, unspecified ==

== ENCOUNTER → 2020-06-16 | Outpatient (CLI) | payer OTHER ==
--- NOTE | 2020-06-16 16:24 | US ---
EXAM DESCRIPTION: Pelvic,Non-OB: Ultrasound. CLINICAL HISTORY: 54 years Female LOWER ABDOMINAL PAIN COMPARISON: None TECHNIQUE: Endovaginal scanning. Burnett-scale and Doppler modes. FINDINGS: Uterus surgically removed Cervix fin posterior to the endocervix. Cul-de-sac: Fluid. Right ovary 2.0 x 1.4 x 1.3 cm. 1.8 mL. Normal color Doppler vascularity. No follicles or cysts. No adnexal mass or free fluid. Left ovary 2.3 x 1.5 x 1.4 cm. 2.6 mL. Normal color Doppler vascularity. No follicles or cysts. No adnexal mass or free fluid. IMPRESSION: Partial hysterectomy. Fluid posterior to the cervix but not in the canal. Bilateral ovaries normal size and normal color vascularity. Spine Electronically signed by: Shar Ray MD 06/16/2020 2:45 PM CDT
== END ==
LOC: US 09:15
PROVIDERS: ATTEND Family Medicine
DX: N88.8 Other specified noninflammatory disorders of cervix uteri (principal); Z90.710 Acquired absence of both cervix and uterus